=== PATIENT | male | born 1935 | race African-American/Black ===

== ENCOUNTER → 2016-05-14 | Outpatient (CLI) | payer MEDICARE, OTHER ==
[2016-05-14 15:02] LABS: HEMATOCRIT 26.3 % (37.9-51.0); HEMOGLOBIN 8.9 g/dL (13.5-17.0); HGB HCT DIFFERENCE 0.4; MEAN CORPUSCULAR HEMOGLOBIN 29.7 pg (27.0-33.4); MEAN CORPUSCULAR HGB CONC 33.9 g/dL (32.0-36.0); MEAN CORPUSCULAR VOLUME 88 fl (80-97); RED CELL DISTRIBUTION WIDTH 14.5 % (11.5-14.0); WHITE BLOOD COUNT 8.1 10^3/uL (4.0-10.5)
[2016-05-14 15:29] LABS: BASOPHILS % (MANUAL) 1 % (0-2); EOSINOPHILS % (MANUAL) 1 % (0-6); LYMPHOCYTES % (MANUAL) 8 % (13-45); TOTAL CELLS COUNTED 100
[2016-05-14 15:30] LABS: RBC MORPHOLOGY COMMENT NORMO-CYTIC/CHROMIC
[2016-05-14 15:32] LABS: BLOOD UREA NITROGEN 93 mg/dL (7-20); CALCIUM 9.7 mg/dL (8.4-10.2); CREATININE RESULT 3.91 mg/dL (0.52-1.25); GLUCOSE 113 mg/dL (75-110)
[2016-05-14 15:40] LABS: ANION GAP 19 (5-19); CARBON DIOXIDE 15 mmol/L (22-30); CHLORIDE 109 mmol/L (98-107); POTASSIUM 4.9 mmol/L (3.6-5.0); SODIUM 143.4 mmol/L (137-145)
== END ==
LOC: OD 12:47
PROVIDERS: ATTEND Physician Assistant
DX: R42 Dizziness and giddiness (principal)
CPT/HCPCS: 36415; 80048; 85025

== ENCOUNTER → 2016-05-31 | Outpatient (CLI) | payer MEDICARE, OTHER ==
[2016-05-31 12:33] LABS: HEMATOCRIT 29.4 % (37.9-51.0); HEMOGLOBIN 9.6 g/dL (13.5-17.0); HGB HCT DIFFERENCE -0.6; MEAN CORPUSCULAR HEMOGLOBIN 29.5 pg (27.0-33.4); MEAN CORPUSCULAR HGB CONC 32.8 g/dL (32.0-36.0); MEAN CORPUSCULAR VOLUME 90 fl (80-97); RED BLOOD COUNT 3.27 10^6/uL (4.35-5.55); RED CELL DISTRIBUTION WIDTH 15.6 % (11.5-14.0); WHITE BLOOD COUNT 6.7 10^3/uL (4.0-10.5)
[2016-05-31 13:04] LABS: ANION GAP 14 (5-19); BLOOD UREA NITROGEN 68 mg/dL (7-20); CALCIUM 9.4 mg/dL (8.4-10.2); CARBON DIOXIDE 18 mmol/L (22-30); CHLORIDE 115 mmol/L (98-107); CREATININE RESULT 3.02 mg/dL (0.52-1.25); GLUCOSE 92 mg/dL (75-110); SODIUM 146.9 mmol/L (137-145)
== END ==
LOC: OD 11:55
PROVIDERS: ATTEND Internal Medicine Nephrology
DX: D64.9 Anemia, unspecified (principal); N18.4 Chronic kidney disease, stage 4 (severe)
CPT/HCPCS: 36415; 80048; 82728; 83540; 83550; 85027

== ENCOUNTER 2016-07-22 12:25 | Inpatient (IN) | payer MEDICARE, OTHER ==
--- NOTE | 2016-07-22 12:47 | ER Document Report ---
ED Medical Screen (RME) - General Stated Complaint: LEFT LEG PAIN Time seen by provider: 12:45 Mode of Arrival: Wheelchair Information source: Patient Notes: 80-year-old male presents to ED for positive Doppler for DVT to his left leg. Pain was 3 out of 5. Denies being on blood thinners, denies smoking. Patient has a pacemaker/defibrillator. I have greeted and performed a rapid initial assessment of this patient. A comprehensive ED assessment and evaluation of the patient, analysis of test results and completion of medical decision making process will be conducted by an additional ED providers. TRAVEL OUTSIDE OF THE [place] IN LAST 30 DAYS: No - Related Data Allergies/Adverse Reactions: No Known Allergies Allergy (Verified 07/22/16 12:43) Past Medical History - Past Medical History Cardiac Medical History: Reports: Hx Congestive Heart Failure, Hx Coronary Artery Disease, Hx Hypercholesterolemia, Hx Hypertension Pulmonary Medical History: Reports: Hx COPD Neurological Medical History: Denies: Hx Seizures Renal/ Medical History: Reports: Hx Benign Prostatic Hyperplasia GI Medical History: Reports: Hx Gastroesophageal Reflux Disease Musculoskeltal Medical History: Reports Hx Arthritis - osteo. Psychiatric Medical History: Reports: Hx Depression Past Surgical History: Reports: Hx Cardiac Surgery - pacer/defibrillator, Hx Internal Defibrillator - Immunizations Hx Diphtheria, Pertussis, Tetanus Vaccination: Yes
[2016-07-22 13:22] LABS: ABSOLUTE BASOPHILS # (AUTO) 0.1 10^3/uL (0.0-0.2); ABSOLUTE EOSINOPHILS # (AUTO) 0.1 10^3/uL (0.0-0.6); ABSOLUTE LYMPHOCYTES (AUTO) 0.4 10^3/uL (0.5-4.7); ABSOLUTE MONOCYTES (AUTO) 0.5 10^3/uL (0.1-1.4); ABSOLUTE NEUT (AUTO) 4.6 10^3/uL (1.7-8.2); BASOPHILS % (AUTO) 1.2 % (0-2); EOSINOPHILS % (AUTO) 1.6 % (0-6); HEMATOCRIT 34.6 % (37.9-51.0); HGB HCT DIFFERENCE -1.6; LYMPHOCYTES % (AUTO) 7.6 % (13-45); MEAN CORPUSCULAR HEMOGLOBIN 29.3 pg (27.0-33.4); MEAN CORPUSCULAR HGB CONC 31.9 g/dL (32.0-36.0); MEAN CORPUSCULAR VOLUME 92 fl (80-97); MONOCYTES % (AUTO) 9.2 % (3-13); RED BLOOD COUNT 3.76 10^6/uL (4.35-5.55); RED CELL DISTRIBUTION WIDTH 16.4 % (11.5-14.0); SEGMENTED NEUTROPHILS % (AUTO) 80.4 % (42-78); WHITE BLOOD COUNT 5.8 10^3/uL (4.0-10.5)
[2016-07-22 13:28] LABS: PROTHROMBIN TIME 15.4 SEC (11.4-15.4)
--- NOTE | 2016-07-22 13:32 | ER Document Report ---
ED Extremity Problem, Lower - General Mode of Arrival: Wheelchair Information source: Patient, Relative - TRAVEL OUTSIDE OF THE [place] IN LAST 30 DAYS: No - HPI Patient complains to provider of: Pain, Swelling Location: Leg - left Occurred: Yesterday Context: Other - see above Associated symptoms: Other - see above <KRZYSZTOF MUELLER - Last Filed: 07/22/16 13:35> <MARIANELA GUTIERREZ - Last Filed: 07/22/16 16:37> - General Chief Complaint: Leg Swelling Stated Complaint: LEFT LEG PAIN Notes: 80 year old male with history of CHF, CAD, hyperlipidemia, and hypertension presents to the ED after having an outpatient doppler study performed on the patient's left leg and finding evidence of a DVT in the left femoral vein at the thigh. states that she noticed the patient complaining of pain and swelling to the left leg yesterday. Patient reports that it hurt more at night. (KRZYSZTOF MUELLER) - Related Data Allergies/Adverse Reactions: No Known Allergies Allergy (Verified 07/22/16 12:43) Home Medications: Current Home Medications Atorvastatin Calcium [Lipitor 10 mg Tablet] 10 mg PO QHS 07/22/16 [History] Carvedilol [Coreg 3.125 mg Tablet] 3.125 mg PO Q12 07/22/16 [History] Clopidogrel Bisulfate [Clopidogrel] 75 mg PO DAILY 07/22/16 [History] Famotidine [Pepcid 20 mg Tablet] 20 mg PO BID 07/22/16 [History] Febuxostat [Uloric 40 mg Tablet] 40 mg PO DAILY 07/22/16 [History] Ferrous Sulfate [Feosol 325 mg Tablet] 325 mg PO BID 07/22/16 [History] Furosemide [Lasix] 20 mg PO DAILY 07/22/16 [History] Isosorbide Mononitrate [Isosorbide Mononitrate ER] 30 mg PO DAILY 07/22/16 [ History] Losartan Potassium [Cozaar 50 mg Tablet] 50 mg PO Q12 07/22/16 [History] Past Medical History - General Information source: Patient - Social History Smoking Status: Never Smoker Chew tobacco use (# tins/day): No Frequency of alcohol use: None Drug Abuse: None Family History: None Patient has suicidal ideation: No Patient has homicidal ideation: No - Past Medical History Cardiac Medical History: Reports: Hx Congestive Heart Failure, Hx Coronary Artery Disease, Hx Hypercholesterolemia, Hx Hypertension Pulmonary Medical History: Reports: Hx COPD Neurological Medical History: Denies: Hx Seizures Renal/ Medical History: Reports: Hx Benign Prostatic Hyperplasia. Denies: Hx Peritoneal Dialysis GI Medical History: Reports: Hx Gastroesophageal Reflux Disease Musculoskeltal Medical History: Reports Hx Arthritis - osteo. Psychiatric Medical History: Reports: Hx Depression Past Surgical History: Reports: Hx Cardiac Surgery - pacer/defibrillator, Hx Internal Defibrillator - Immunizations Hx Diphtheria, Pertussis, Tetanus Vaccination: Yes <KRZYSZTOF MUELLER - Last Filed: 07/22/16 13:35> Review of Systems - Review of Systems Constitutional: No symptoms reported EENT: No symptoms reported Cardiovascular: No symptoms reported Respiratory: No symptoms reported Gastrointestinal: No symptoms reported Genitourinary: No symptoms reported Male Genitourinary: No symptoms reported Musculoskeletal: See HPI, Leg swelling - left Skin: No symptoms reported Hematologic/Lymphatic: No symptoms reported Neurological/Psychological: No symptoms reported -: Yes All other systems reviewed and negative <KRZYSZTOF MUELLER - Last Filed: 07/22/16 13:35> Physical Exam <KRZYSZTOF MUELLER - Last Filed: 07/22/16 13:35> - Vital signs Interpretation: Normal - General General appearance: Appears well, Alert In distress: None - HEENT Head: Normocephalic, Atraumatic Eyes: Normal Pupils: PERRL Neck: Normal - Respiratory Respiratory status: No respiratory distress Breath sounds: Normal - Cardiovascular Rhythm: Regular - Abdominal Inspection: Normal Bowel sounds: Normal Tenderness: Nontender - Back Back: Normal - Extremities General upper extremity: Normal inspection General lower extremity: Other - There is some edema to the lower legs with the left leg a little larger than the right. - Neurological Neuro grossly intact: Yes - Psychological Associated symptoms: Normal affect - Skin Skin Temperature: Warm Skin Moisture: Dry Skin Color: Normal <MARIANELA GUTIERREZ - Last Filed: 07/22/16 16:37> - Vital signs Vitals: Temp Pulse BP Pulse Ox 97.3 F 73 154/66 H 98 07/22/16 12:43 07/22/16 12:43 07/22/16 12:43 07/22/16 12:43 - General Notes: Patient is somewhat cachectic and seems to be a little demented (MARIANELA GUTIERREZ) Course - Laboratory Result Diagrams: 07/22/16 12:50 07/22/16 12:50 <KRZYSZTOF MUELLER - Last Filed: 07/22/16 13:35> - Laboratory Result Diagrams: 07/22/16 12:50 07/22/16 12:50 - Diagnostic Test Radiology reviewed: Reports reviewed - VQ scan is read as intermediate probability - EKG Interpretation by Me EKG shows normal: Sinus rhythm, [place], Intervals, QRS Complexes, ST-T Waves Rate: Normal - 86 [place]/QRS: LBBB P Waves: LAE Heart block present: 1st Degree When compared to previous EKG there are: Changes noted - The T waves are a little more call and peaked today - Consults Dr. Mueller Time consulted: 15:10 Consulted provider: will see as inpatient - Dr. Mueller requests we start a heparin drip without the heparin bolus. Dr. Graff Time consulted: 15:20 Consulted provider: will see as inpatient <MARIANELA GUTIERREZ - Last Filed: 07/22/16 16:37> - Vital Signs Vital signs: Temp Pulse Resp BP Pulse Ox 97.3 F 73 154/66 H 98 07/22/16 12:43 07/22/16 12:43 07/22/16 12:43 07/22/16 12:43 - Laboratory Laboratory results interpreted by me: 07/22/16 07/22/16 07/22/16 12:50 12:50 12:50 RBC 3.76 L Hgb 11.0 L Hct 34.6 L MCHC 31.9 L RDW 16.4 H Plt Count 460 H Seg Neutrophils % 80.4 H Lymphocytes % 7.6 L Absolute Lymphocytes 0.4 L Potassium 6.1 H* Chloride 116 H Carbon Dioxide 14 L BUN 61 H Creatinine 3.72 H Est GFR ( Amer) 19 L Est GFR (Non-Af Amer) 16 L Creatine Kinase 219 H CK-MB (CK-2) 26.20 H Critical Care Note - Critical Care Note Total time excluding time spent on procedures (mins): 30 <MARIANELA GUTIERREZ - Last Filed: 07/22/16 16:37> Discharge <KRZYSZTOF MUELLER - Last Filed: 07/22/16 13:35> - Discharge Admitting Provider: [facility] Unit Admitted: IMCU <MARIANELA GUTIERREZ - Last Filed: 07/22/16 16:37> - Discharge Clinical Impression: Chronic renal failure, stage 4 (severe), Hyperkalemia Deep venous thrombosis of left femoral vein Qualifiers: Chronicity: acute Qualified Code(s): I82.412 - Acute embolism and thrombosis of left femoral vein Condition: Stable Disposition: ADMITTED INPATIENT Scribe Attestation: 07/22/16 16:37 I personally performed the services described in the documentation, reviewed and edited the documentation which was dictated to the scribe in my presence, and it accurately records my words and actions. (MARIANELA GUTIERREZ) Scribe Documentation - Scribe Written by Alen:: Alen Reyes, 07/22/2016 1333 acting as scribe for :: Ba <KRZYSZTOF MUELLER - Last Filed: 07/22/16 13:35>
[2016-07-22 13:46] LABS: ALANINE AMINOTRANSFERASE 23 U/L (21-72); ALKALINE PHOSPHATASE 64 U/L (38-126); ANION GAP 15 (5-19); ASPARTATE AMINO TRANSFERASE 44 U/L (17-59); BILIRUBIN,TOTAL 0.6 mg/dL (0.2-1.3); BLOOD UREA NITROGEN 61 mg/dL (7-20); CALCIUM 10.1 mg/dL (8.4-10.2); CARBON DIOXIDE 14 mmol/L (22-30); CHLORIDE 116 mmol/L (98-107); CREATINE KINASE 219 U/L (55-170); CREATININE RESULT 3.72 mg/dL (0.52-1.25); GLUCOSE 106 mg/dL (75-110); SODIUM 144.6 mmol/L (137-145)
[2016-07-22 13:57] LABS: CREATINE KINASE MB 26.2 ng/mL (<4.55)
[2016-07-22 14:01] LABS: POTASSIUM 6.1 mmol/L (3.6-5.0); TROPONIN I 5.8 ng/mL
[2016-07-22] MEDS ORDERED: ACETAMINOPHEN 325 MG TABLET PO PRN (15:12)
[2016-07-22] MEDS ORDERED: IPRATROPIUM/ALBUTEROL 0.5-2.5 MG/3 ML AMPUL NEB PRN (15:12)
[2016-07-22] MEDS ORDERED: HEPARIN SOD (PORCINE) 1,000 UNIT/ML 10 ML VIAL IV PRN (15:14)
[2016-07-22] MEDS ORDERED: HEPARIN SOD (PORCINE) 1,000 UNIT/ML 10 ML VIAL IV ONE (15:14)
[2016-07-22] MEDS ORDERED: HEPARIN SODIUM,PORCINE/D5W 250 ML IV PRN (15:14)
[2016-07-22] MEDS ORDERED: SODIUM POLYSTYRENE SULFONATE 15 GM/60 ML PO ONE ×2 (15:16→15:23)
[2016-07-22] MEDS ORDERED: ASPIRIN 325 MG TABLET, ENT COATED PO ONE (15:17)
[2016-07-22] MEDS ORDERED: CALCIUM GLUCONATE 1000 MG/10 ML INJ IV ONE (15:27)
[2016-07-22] MEDS ORDERED: NORMAL SALINE 1000 ML 1,000 ML IV ONE (15:28)
[2016-07-22] MEDS ORDERED: SODIUM BICARBONATE 8.4% INJ 50 MEQ/50 ML DISP.SYRIN IV ONE (15:28)
--- NOTE | 2016-07-22 16:42 | PDOC H&P ---
History of Present Illness Admission Date/PCP: 07/22/16 15:12 XUAN DAWN MD Patient complains of: Leg swelling and shortness of the breath History of Present Illness: NIKOS HAMMOND is a 80 year old This is a 80-year-old male with a significant disease with a coronary artery and only medical management for the widened cardiology and also patient's follow the local cardiology and the significant history of anemia and chronic kidney disease stage IV patients came to the my office today with a complaint before increasing the leg swelling and shortness of the breath for the last several days. In the office patient was not in any acute distress and O2 sat is normal but the patient ever definitely is swelling in the leg and the concern about the DVT versus CHF. Patient have a history of the DVT in the left extremity in the past and the patient was on the Coumadin but after several months of Coumadin will stop because of severe anemia. Patient sent to the hospital for the ultrasound and the report was positive for acute DVT in the left upper extremity and patient was sent to the emergency departmentAnd the patient underwent for the VQ scan Sows indeterminant and patient's potassium was high and patient's troponin was also elevatedPatients denied any chest pain denied any shortness of breath but it is now patient was started on a heparin drip in the ER and the patient have a multiple other risk factors and comorbidity with only medical management for his coronary disease and patient is not a very good candidate for dialysis because of the multiple comorbidity. 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 and which is not operable because of the multiple comorbidity and not sure about this mass is related to any malignancy but with ongoing patient's problems with unable to eat or drink much I believe that this is a small progress Past Medical History Cardiac Medical History: Reports: Congestive Heart Failure, Coronary Artery Disease, DVT, Myocardial Infarction, Hyperlipidema, Hypertension, Heart Murmur Pulmonary Medical History: Reports: Chronic Obstructive Pulmonary Disease (COPD) Neurological Medical History: Denies: Seizures Renal/ Medical History: Reports: Chronic Kidney Disease 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 Psychiatric Medical History: Reports: Depression Hematology: Reports: Anemia, Bleeding Tendencies Past Surgical History Past Surgical History: Reports: Cardiac Catheterization, Internal Defibrillator , Pacemaker Social History Smoking Status: Never Smoker Frequency of Alcohol Use: None Hx Recreational Drug Use: No Drugs: None Hx Prescription Drug Abuse: No Family History Family History: None, Reviewed & Not Pertinent Parental Family History Reviewed: Yes Children Family History Reviewed: Yes Sibling(s) Family History Reviewed.: Yes Medication/Allergy Home Medications: Atorvastatin Calcium [Lipitor 10 mg Tablet] 10 mg PO QHS 07/22/16 Carvedilol [Coreg 3.125 mg Tablet] 3.125 mg PO Q12 07/22/16 Clopidogrel Bisulfate [Clopidogrel] 75 mg PO DAILY 07/22/16 Famotidine [Pepcid 20 mg Tablet] 20 mg PO BID 07/22/16 Febuxostat [Uloric 40 mg Tablet] 40 mg PO DAILY 07/22/16 Ferrous Sulfate [Feosol 325 mg Tablet] 325 mg PO BID 07/22/16 Furosemide [Lasix] 20 mg PO DAILY 07/22/16 Isosorbide Mononitrate [Isosorbide Mononitrate ER] 30 mg PO DAILY 07/22/16 Losartan Potassium [Cozaar 50 mg Tablet] 50 mg PO Q12 07/22/16 Allergies/Adverse Reactions: No Known Allergies Allergy (Verified 07/22/16 12:43) Review of Systems Constitutional: PRESENT: fatigue, weakness Eyes: ABSENT: visual disturbances Ears: ABSENT: hearing changes Cardiovascular: PRESENT: chest pain, dyspnea on exertion, edema. ABSENT: orthropnea, palpitations Respiratory: ABSENT: cough, hemoptysis Gastrointestinal: ABSENT: abdominal pain, constipation, diarrhea, hematemesis, hematochezia, nausea, vomiting Genitourinary: ABSENT: dysuria, hematuria Musculoskeletal: ABSENT: joint swelling Integumentary: ABSENT: rash, wounds Neurological: ABSENT: abnormal gait, abnormal speech, confusion, dizziness, focal weakness, syncope Psychiatric: PRESENT: depression. ABSENT: anxiety, homidical ideation, suicidal ideation Endocrine: ABSENT: cold intolerance, heat intolerance, menstrual abnormalities, polydipsia, polyuria Hematologic/Lymphatic: ABSENT: easy bleeding, easy bruising, lymphadenopathy Physical Exam Vital Signs: Temp Pulse Resp BP Pulse Ox 97.3 F 73 154/66 H 98 07/22/16 12:43 07/22/16 12:43 07/22/16 12:43 07/22/16 12:43 General appearance: PRESENT: no acute distress, well-developed, well-nourished Head exam: PRESENT: atraumatic, normocephalic Eye exam: PRESENT: conjunctiva pink, EOMI, PERRLA. ABSENT: scleral icterus Ear exam: PRESENT: normal external ear exam Mouth exam: PRESENT: moist, tongue midline Neck exam: PRESENT: full ROM. ABSENT: carotid bruit, JVD, lymphadenopathy, thyromegaly Respiratory exam: PRESENT: decreased breath sounds Cardiovascular exam: PRESENT: +S1, +S2. ABSENT: rubs, systolic murmur Pulses: PRESENT: normal dorsalis pedis pul, +2 pedal pulses bilateral Vascular exam: PRESENT: normal capillary refill GI/Abdominal exam: PRESENT: normal bowel sounds, soft. ABSENT: distended, guarding, mass, organolmegaly, rebound, tenderness Rectal exam: PRESENT: deferred Extremities exam: PRESENT: pedal edema Neurological exam: PRESENT: alert, awake, oriented to person, oriented to place , oriented to time, oriented to situation, CN II-XII grossly intact. ABSENT: motor sensory deficit Psychiatric exam: PRESENT: appropriate affect, normal mood. ABSENT: homicidal ideation, suicidal ideation Skin exam: PRESENT: dry, intact, warm. ABSENT: cyanosis, rash Results Impressions: Lung Scan-VQ NM 07/22/16 13:14 IMPRESSION: Matching ventilation and perfusion defect in the right lower lobe. This is intermediate probability for acute pulmonary embolus according to PIOPED criteria. Patient has a known DVT in the left leg. Assessment & Plan - Diagnosis (1) Deep venous thrombosis of left femoral vein Qualifiers: Chronicity: acute Qualified Code(s): I82.412 - Acute embolism and thrombosis of left femoral vein Is this a current diagnosis for this admission?: YesPlan: Admit the patient in the IMCU with the possible underlying PE, no other options to start the heparin drip consult a seam steamer and oncologist for further assessment. Discussed with the patient and the family about all the pros and cons of the heparin drips and agree start the heparin drips (2) Chronic renal failure, stage 4 (severe) Is this a current diagnosis for this admission?: YesPlan: We consulted the nephrology as per discussed with the Dr. Graff patient is not a very good candidate for the dialysis because of the patient of a multiple comorbidity including the very severe coronary artery disease and unable to operate and only a medical management and patients may be a high risk on the dialysis will continues to follow with nephrology (3) Hyperkalemia Is this a current diagnosis for this admission?: YesPlan: Given some Kayexalate and repeat this again after that 4 hours (4) Acute combined systolic and diastolic CHF, NYHA class 3 Is this a current diagnosis for this admission?: YesPlan: Start the patient on IV Lasix and consult the cardiology (5) Acute iun-FT-[id number] myocardial infarction Is this a current diagnosis for this admission?: YesPlan: Possible underlying cardiomyopathy will consult the cardiology as per the very extensive review the widened and the previous cardiology not patient is only a medical management (6) Anemia Qualifiers: Anemia type: unspecified type Qualified Code(s): D64.9 - Anemia, unspecified Is this a current diagnosis for this admission?: YesPlan: We will continues to given Procrit injections patient's last Procrit injection was given the last Tuesday by Dr. Graff will get on iron study stool guaiac study (7) Cardiomyopathy Qualifiers: Cardiomyopathy type: unspecified Qualified Code(s): I42.9 - Cardiomyopathy, unspecified Is this a current diagnosis for this admission?: YesPlan: Continues to Lasix order the echocardiogram (8) Colonic mass Is this a current diagnosis for this admission?: YesPlan: Unclear etiology but unable to do any operative interventions due to the multiple comorbidity (9) Elevated troponin Is this a current diagnosis for this admission?: YesPlan: Most likely a from the non-ST MS versus cardiomyopathy and chronic kidney disease will follow with the cardiology (10) Hypertension Qualifiers: Hypertension type: essential hypertension Qualified Code(s): I10 - Essential (primary) hypertension Is this a current diagnosis for this admission?: YesPlan: Continues the current medications (11) Failure to thrive Qualifiers: Failure to thrive age range: in adult Qualified Code(s): R62.7 - Adult failure to thrive Is this a current diagnosis for this admission?: YesPlan: With the multiple comorbidity and the multiple disease with dietitian consult - Time Time Spent: 50 to 70 Minutes Medications reviewed and adjusted accordingly: Yes Anticipated discharge: Other Within: Other - Inpatient Certification Medical Necessity: Need Close Monitoring Due to Risk of Patient Decompensation Post Hospital Care: D/C Android Platform Developer Documentation - Plan Summary Plan Summary: Admit the patient's in IMCU consult to cardiology and nephrology and hematology. Start the patient on a heparin drip. Patient have a multiple comorbidity and the overall prognosis is very poor. Discussed with the patient' s and the family including his and the nephew and understand about that
[2016-07-22 19:08] LABS: PROTHROMBIN TIME 15.9 SEC (11.4-15.4)
--- NOTE | 2016-07-22 19:47 | PDOC CONSULTATION ---
Consultation Consult Date: 07/22/16 Attending physician:: XUAN DAWN Consult reason:: Abnormal troponin I History of Present Illness Admission Date/PCP: 07/22/16 15:12 XUAN DAWN MD Patient complains of: Leg edema History of Present Illness: NIKOS HAMMOND is a 80 year old This is a 80-year-old male with a significant disease with a coronary artery and only medical management as per [facility] cardiology and also patient's follow the local cardiology and the significant history of anemia and chronic kidney disease stage IV patients came to the my office today with a complaint before increasing the leg swelling and shortness of the breath for the last several days. In the office patient was not in any acute distress and O2 sat is normal but the patient ever definitely is swelling in the leg and the concern about the DVT versus CHF. Patient have a history of the DVT in the left extremity in the past and the patient was on the Coumadin but after several months of Coumadin will stop because of severe anemia. Patient sent to the hospital for the ultrasound and the report was positive for acute DVT in the left upper extremity and patient was sent to the emergency departmentAnd the patient underwent for the VQ scan Sows indeterminant and patient's potassium was high and patient's troponin was also elevated. Patients denied any chest pain denied any shortness of breath but it is now patient was started on a heparin drip in the ER and the patient have a multiple other risk factors and comorbidity with only medical management for his coronary disease and patient is not a very good candidate for dialysis because of the multiple comorbidity. Discussed with the family including the and the nephew and the patient's and understand about all the complexity of the disease and the patient at this point admitting in the hospital for further treatments. 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 On repeated questioning in the emergency room, he denied any chest pain, he denied any shortness of breath but kept pointing to his lower extremity. Patient was noted to be confused and could not remember the date. Past Medical History Cardiac Medical History: Reports: Congestive Heart Failure, Coronary Artery Disease, DVT, Myocardial Infarction, Hyperlipidema, Hypertension, Heart Murmur Pulmonary Medical History: Reports: Chronic Obstructive Pulmonary Disease (COPD) Neurological Medical History: Denies: Seizures Renal/ Medical History: Reports: Chronic Kidney Disease GI Medical History: Reports: Gastroesophageal Reflux Disease Musculoskeltal Medical History: Reports: Arthritis - osteo. Psychiatric Medical History: Reports: Depression Hematology: Reports: Anemia, Bleeding Tendencies Past Surgical History Past Surgical History: Reports: Cardiac Catheterization, Internal Defibrillator , Pacemaker Social History Information Source: Patient Smoking Status: Never Smoker Frequency of Alcohol Use: None Hx Recreational Drug Use: No Drugs: None Hx Prescription Drug Abuse: No - Advance Directive Resuscitation Status: Full Code Family History Family History: None, Reviewed & Not Pertinent Parental Family History Reviewed: Yes Children Family History Reviewed: Yes Sibling(s) Family History Reviewed.: Yes Medication/Allergy Home Medications: Atorvastatin Calcium [Lipitor 10 mg Tablet] 10 mg PO QHS 07/22/16 Carvedilol [Coreg 3.125 mg Tablet] 3.125 mg PO Q12 07/22/16 Clopidogrel Bisulfate [Clopidogrel] 75 mg PO DAILY 07/22/16 Clopidogrel Bisulfate [Plavix 75 mg Tablet] 75 mg PO DAILY #30 tablet 07/22/16 Famotidine [Pepcid 20 mg Tablet] 20 mg PO BID 07/22/16 Febuxostat [Uloric 40 mg Tablet] 40 mg PO DAILY 07/22/16 Ferrous Sulfate [Feosol 325 mg Tablet] 325 mg PO BID 07/22/16 Furosemide [Lasix] 20 mg PO DAILY 07/22/16 Isosorbide Mononitrate [Isosorbide Mononitrate ER] 30 mg PO DAILY 07/22/16 Losartan Potassium [Cozaar 50 mg Tablet] 50 mg PO Q12 07/22/16 Allergies/Adverse Reactions: No Known Allergies Allergy (Verified 07/22/16 12:43) Review of Systems Review of Systems: Please see history of present illness and past medical history as wall. Constitutional: No fever or chills reported. Head : No recent chronic headaches, recent head injury. Eyes: No recent eye pain, diplopia, redness, discharge, acute visual changes. Ears: No recent chronic ear pain, acute hearing loss, ear discharge. Oral cavity: No recent ulcerations, bleeding, oral cavity discomfort. Neck: No recent acute neck pain reported. Hematologic: No recent easy bruising or bleeding or hematologic malignancy reported. There is concern about GI tract malignancy. Lymphatic: No recent lymphatic malignancy, chronic lymphadenopathy reported yet Cardiovascular system review: See history of present illness. Patient denied any sustained palpitations, syncope, near syncope or recent defibrillator shocks. Patient has noted increasing pedal edema. Respiratory system review: No recent chronic cough, hemoptysis, blood clots in the lungs reported. Mild Shortness of breath on exertion. Gastrointestinal system review: Negative for any recent acute or chronic abdominal pain, hematemesis, melena, recent change in bowel habits. Genitourinary system review: No recent acute or chronic hematuria, flank pain, UTI etc. reported. Patient has chronic renal failure. Skin system review: Negative for any recent abnormal bruising, no rash, no pruritus reported. Neurologic: No prior history of strokes, mini strokes, seizure disorder. Psychologic: No history of major psychosis or major depression reported. Musculoskeletal: Minor aches and pains reported. No acute joint swelling reported. Endocrine: No recent polyuria, polydipsia, recent heat or cold intolerance. Physical Exam Vital Signs: Temp Pulse Resp BP Pulse Ox 97.3 F 101 H 16 152/84 H 96 07/22/16 12:43 07/22/16 17:40 07/22/16 17:40 07/22/16 17:00 07/22/16 17:40 Exam: GENERAL: well-nourished and in no acute distress. Alert and oriented x3 HEAD: Atraumatic, normocephalic. EYES: Pupils equal round and reactive to light, extraocular movements intact, sclera anicteric, conjunctiva are normal. ENT: TMs normal, nares patent, oropharynx clear without exudates. Moist mucous membranes. No oral ulcerations or bleeding gums noted NECK: supple without lymphadenopathy. Trachea is central. No cervical or axillary lymphadenopathy noted. Carotids are 2+, JVD WNL LUNGS: Respiration seems nonlabored, no significant accessory muscle action noted. Breath sounds clear to auscultation bilaterally and equal noted. No wheezes rales or rhonchi noted. No significant dullness noted on percussion. CHEST: Palpation of the chest wall shows no significant chest wall tenderness. No other significant abnormalities noted. HEART: [place] [employer], No PSH, 1/6 ZAYRA aortic area, 1/6 kwan systolic murmur mitral area, no rubs, no gallops. ABDOMEN: Soft, no significant tenderness appreciated, normoactive bowel sounds. No guarding, no rebound. No rigidity noted . No masses appreciated. EXTREMITIES: Pedal pulses are 1-2+, no calf tenderness noted. No clubbing or cyanosis.2+ + pedal edema noted. NEUROLOGICAL: Focused neurological exam showed no significant neurologic deficit. Normal speech, no focal weakness appreciated. PSYCH: Normal mood, normal affect. Judgment and insight within normal limits. SKIN: No significant ecchymosis, rash, ulcerations or signs of pruritus noted. MUSCULOSKELETAL EXAM: No significant joint swelling noted. Results EKG Comments: Sinus rhythm, LVH with secondary ST-T wave changes Impressions: Lung Scan[facility] 07/22/16 13:14 IMPRESSION: Matching ventilation and perfusion defect in the right lower lobe. This is intermediate probability for acute pulmonary embolus according to PIOPED criteria. Patient has a known DVT in the left leg. Assessment & Plan - Diagnosis (1) Acute [id number] myocardial infarction Is this a current diagnosis for this admission?: Yes (2) CHF (congestive heart failure) Qualifiers: Congestive heart failure type: combined Congestive heart failure chronicity: chronic Qualified Code(s): I50.42 - Chronic combined systolic (congestive) and diastolic (congestive) heart failure Is this a current diagnosis for this admission?: Yes (3) CAD (coronary artery disease) Qualifiers: Coronary Disease-Associated Artery/Lesion type: [place] artery [place] vs. transplanted heart: [place] heart Associated angina: without angina Qualified Code(s): I25.10 - Atherosclerotic heart disease of [place] coronary artery without angina pectoris Is this a current diagnosis for this admission?: Yes (4) Elevated troponin Is this a current diagnosis for this admission?: Yes (5) Chronic renal failure, stage 4 (severe) Is this a current diagnosis for this admission?: Yes (6) Deep venous thrombosis of left femoral vein Qualifiers: Chronicity: acute Qualified Code(s): I82.412 - Acute embolism and thrombosis of left femoral vein Is this a current diagnosis for this admission?: Yes (7) Failure to thrive Qualifiers: Failure to thrive age range: in adult Qualified Code(s): R62.7 - Adult failure to thrive Is this a current diagnosis for this admission?: Yes (8) Hyperkalemia Is this a current diagnosis for this admission?: Yes - Notes Notes: Acute non-ST segment elevation myocardial infarction: Patient has significantly elevated total CK-MB and also troponin I. This is in the non-STEMI range. Patient however felt not a candidate for aggressive intervention. At this point patient is asymptomatic and is not exhibiting any angina or angina related symptoms. Recommend medical management with beta rigo, statins, aspirin and Plavix. Agree with heparin drip for 48-72 hours. Will repeat a 12- lead EKG. In a.m. and also a 2-D echocardiogram. Congestive heart failure: Patient seems to be having chronic congestive heart failure stage III. From both systolic and diastolic dysfunction. Coronary artery disease: Please see discussion under acute non-ST segment elevation myocardial infarction. Elevated troponin I: Probably related to non-STEMI but could also be related to pulmonary embolism. Chronic kidney disease, stage IV: Nephrology consulted. The venous thrombosis left femoral vein: Continue chronic anticoagulation. Hyperkalemia: Agree with current management plan with Kayexalate. Failure to thrive: Elevation test numerous significant comorbid condition. Overall prognosis is guarded. - Time Time Spent: 50 to 70 Minutes - CODE STATUS was discussed, patient remains full code. Surrogate decision-maker unchanged. Multiple medical problems were addressed.More than 50% of the time spent coordinating care, discussing management plans with involved caregivers. Management plans discussed with involved personnels. Medical decision making was of moderate complexity. Medications reviewed and adjusted accordingly: Yes
[2016-07-22] MEDS: FAMOTIDINE 20 MG TABLET PO SCH (22:34)
[2016-07-22] MEDS: FUROSEMIDE INJ/PF 20 MG/2 ML SDV IV SCH (22:56)
[2016-07-23] MEDS ORDERED: FAMOTIDINE 20 MG TABLET PO SCH (00:45)
[2016-07-23] MEDS ORDERED: ATORVASTATIN CALCIUM 10 MG TABLET PO ONE (00:45)
[2016-07-23] MEDS ORDERED: LOSARTAN POTASSIUM 50 MG TABLET PO ONE (00:45)
[2016-07-23] MEDS ORDERED: CARVEDILOL 3.125 MG TABLET PO ONE (01:00)
[2016-07-23] MEDS ORDERED: FERROUS SULFATE 325 MG TABLET PO ONE (01:00)
--- NOTE | 2016-07-23 05:35 | EKG REPORT ---
SEVERITY:- ABNORMAL ECG - SINUS RHYTHM FIRST DEGREE AV BLOCK LEFT ATRIAL ABNORMALITY LEFT BUNDLE BRANCH BLOCK : Confirmed by: Payton Malhotra MD 23-Jul-2016 05:35:09
--- NOTE | 2016-07-23 05:35 | EKG REPORT ---
SEVERITY:- ABNORMAL ECG - SINUS OR ECTOPIC ATRIAL RHYTHM LEFT BUNDLE BRANCH BLOCK : Confirmed by: Payton Malhotra MD 23-Jul-2016 05:35:02
[2016-07-23 06:01] LABS: ANION GAP 17 (5-19); BLOOD UREA NITROGEN 66 mg/dL (7-20); CALCIUM 10.4 mg/dL (8.4-10.2); CARBON DIOXIDE 15 mmol/L (22-30); CHLORIDE 119 mmol/L (98-107); CREATININE RESULT 4.17 mg/dL (0.52-1.25); GLUCOSE 137 mg/dL (75-110); SODIUM 151.1 mmol/L (137-145)
[2016-07-23 06:12] LABS: ABSOLUTE BASOPHILS # (AUTO) 0.1 10^3/uL (0.0-0.2); ABSOLUTE LYMPHOCYTES (AUTO) 0.5 10^3/uL (0.5-4.7); ABSOLUTE MONOCYTES (AUTO) 0.6 10^3/uL (0.1-1.4); ABSOLUTE NEUT (AUTO) 5.9 10^3/uL (1.7-8.2); BASOPHILS % (AUTO) 0.8 % (0-2); EOSINOPHILS % (AUTO) 0.2 % (0-6); HEMATOCRIT 36.2 % (37.9-51.0); HEMOGLOBIN 11.6 g/dL (13.5-17.0); HGB HCT DIFFERENCE -1.4; LYMPHOCYTES % (AUTO) 6.9 % (13-45); MEAN CORPUSCULAR HEMOGLOBIN 29.3 pg (27.0-33.4); MEAN CORPUSCULAR HGB CONC 32.1 g/dL (32.0-36.0); MEAN CORPUSCULAR VOLUME 92 fl (80-97); MONOCYTES % (AUTO) 8.5 % (3-13); RED BLOOD COUNT 3.96 10^6/uL (4.35-5.55); RED CELL DISTRIBUTION WIDTH 16.2 % (11.5-14.0); SEGMENTED NEUTROPHILS % (AUTO) 83.6 % (42-78); WHITE BLOOD COUNT 7.1 10^3/uL (4.0-10.5)
[2016-07-23 06:37] LABS: POTASSIUM 6.3 mmol/L (3.6-5.0)
[2016-07-23 06:57] LABS: APPEARANCE,URINE SLIGHTLY-CLOUDY; BILIRUBIN,URINE NEGATIVE (NEGATIVE); GLUCOSE, URINE NEGATIVE (NEGATIVE); KETONES,URINE NEGATIVE (NEGATIVE); LEUKOCYTE ESTERASE,URINE NEGATIVE (NEGATIVE); NITRITE,URINE NEGATIVE (NEGATIVE); PROTEIN,URINE 100 mg/dL (NEGATIVE); URINE SPECIFIC GRAVITY 1.013; UROBILINOGEN,URINE NEGATIVE mg/dL (<2.0)
--- NOTE | 2016-07-23 07:56 | PDOC CONSULTATION ---
Consultation Consult Date: 07/23/16 Attending physician:: XUAN DAWN Consult reason:: New onset DVT, anemia History of Present Illness Admission Date/PCP: 07/22/16 15:12 XUAN DAWN MD Patient complains of: Left lower extremity pain and swelling, weakness, poor by mouth intake History of Present Illness: 80-year-old male with multiple significant comorbidities, we have seen him in the past for anemia. That time he seemed to have a combination of anemia chronic disease as well as iron deficiency anemia. He had concern of colonic mass as well as gastric mass. He had an EGD as well as colonoscopy done 2014, the colonoscopy indicated tubulovillous adenoma but no evidence of malignancy, the EGD indicated some evidence of a gastric mass however the biopsy only indicated severe chronic gastritis but no malignancy. Imaging also at that time was negative for malignancy. He was treated for the anemia and then discharged. He was supposed to see us in the past but it is been very difficult for him to come to our office because of severe weakness and immobilization. He seems to be total care, does not do any ADLs or IADLs on his own. Per nursing, he has had a lot of weight loss, has having poor by mouth intake, and seems to be declining rapidly at home. Recently he was found to have increasing left lower extremity swelling, he had a Doppler done which indicated left femoral thrombosis, consistent with left lower extremity DVT, he is also having some increased shortness of breath so Dr. Dawn, his primary care , admitted him to [facility] and did VQ scan which was indeterminate for PE, there was a ventilation perfusion defect in the right lower lobe. Past Medical History Cardiac Medical History: Reports: Congestive Heart Failure, Coronary Artery Disease, DVT, Myocardial Infarction, Hyperlipidema, Hypertension, Heart Murmur Pulmonary Medical History: Reports: Chronic Obstructive Pulmonary Disease (COPD) Neurological Medical History: Denies: Seizures Renal/ Medical History: Reports: Chronic Kidney Disease GI Medical History: Reports: Gastroesophageal Reflux Disease Musculoskeltal Medical History: Reports: Arthritis - osteo. Psychiatric Medical History: Reports: Depression Hematology: Reports: Anemia, Bleeding Tendencies Past Surgical History Past Surgical History: Reports: Cardiac Catheterization, Internal Defibrillator , Pacemaker Social History Information Source: Dr. Portillo, [facility] Records Lives with: Family Smoking Status: Never Smoker Frequency of Alcohol Use: None Hx Recreational Drug Use: No Drugs: None Hx Prescription Drug Abuse: No - Advance Directive Resuscitation Status: Full Code Family History Family History: None, Reviewed & Not Pertinent Parental Family History Reviewed: Yes Children Family History Reviewed: Yes Sibling(s) Family History Reviewed.: Yes Medication/Allergy Home Medications: Atorvastatin Calcium [Lipitor 10 mg Tablet] 10 mg PO QHS 07/22/16 Carvedilol [Coreg 3.125 mg Tablet] 3.125 mg PO Q12 07/22/16 Clopidogrel Bisulfate [Clopidogrel] 75 mg PO DAILY 07/22/16 Clopidogrel Bisulfate [Plavix 75 mg Tablet] 75 mg PO DAILY #30 tablet 07/22/16 Famotidine [Pepcid 20 mg Tablet] 20 mg PO BID 07/22/16 Febuxostat [Uloric 40 mg Tablet] 40 mg PO DAILY 07/22/16 Ferrous Sulfate [Feosol 325 mg Tablet] 325 mg PO BID 07/22/16 Furosemide [Lasix] 20 mg PO DAILY 07/22/16 Isosorbide Mononitrate [Isosorbide Mononitrate ER] 30 mg PO DAILY 07/22/16 Losartan Potassium [Cozaar 50 mg Tablet] 50 mg PO Q12 07/22/16 Allergies/Adverse Reactions: No Known Allergies Allergy (Verified 07/22/16 12:43) Review of Systems ROS unobtainable: Due to mental status Physical Exam Vital Signs: Temp Pulse Resp BP Pulse Ox 97.4 F 88 18 160/86 H 100 07/23/16 04:56 07/23/16 04:56 07/23/16 04:56 07/23/16 04:56 07/23/16 04:56 Intake & Output 07/22/16 07/23/16 07/24/16 06:59 06:59 06:59 Intake Total 531 Output Total 150 Balance 381 Weight 63.8 kg General appearance: PRESENT: thin, other - Cachectic Head exam: PRESENT: atraumatic Mouth exam: PRESENT: dry mucosa Respiratory exam: PRESENT: clear to auscultation kristen. ABSENT: rales, rhonchi, wheezes Cardiovascular exam: PRESENT: RRR. ABSENT: diastolic murmur, rubs, systolic murmur GI/Abdominal exam: PRESENT: normal bowel sounds, soft. ABSENT: distended, guarding, mass, organolmegaly, rebound, tenderness Rectal exam: PRESENT: deferred Neurological exam: PRESENT: altered Results Laboratory Results: 07/23/16 05:04 07/23/16 05:04 07/23/16 07/23/16 07/23/16 05:04 05:04 06:10 WBC 7.1 RBC 3.96 L Hgb 11.6 L Hct 36.2 L MCV 92 MCH 29.3 MCHC 32.1 RDW 16.2 H Plt Count 468 H Seg Neutrophils % 83.6 H Lymphocytes % 6.9 L Monocytes % 8.5 Eosinophils % 0.2 Basophils % 0.8 Absolute Neutrophils 5.9 Absolute Lymphocytes 0.5 Absolute Monocytes 0.6 Absolute Eosinophils 0.0 Absolute Basophils 0.1 Sodium 151.1 H Potassium 6.3 H* Chloride 119 H Carbon Dioxide 15 L Anion Gap 17 BUN 66 H Creatinine 4.17 H Est GFR ( Amer) 17 L Est GFR (Non-Af Amer) 14 L Glucose 137 H Calcium 10.4 H Urine Color Urine Appearance Urine pH Ur Specific [place] Urine Protein Urine Glucose (UA) Urine Ketones Urine Blood Urine Nitrite Ur Leukocyte Esterase Urine WBC (Auto) Stool Occult Blood NEGATIVE 07/23/16 07/23/16 06:10 06:20 WBC RBC Hgb Hct MCV MCH MCHC RDW Plt Count Seg Neutrophils % Lymphocytes % Monocytes % Eosinophils % Basophils % Absolute Neutrophils Absolute Lymphocytes Absolute Monocytes Absolute Eosinophils Absolute Basophils Sodium Potassium Chloride Carbon Dioxide Anion Gap BUN Creatinine Est GFR ( Amer) Est GFR (Non-Af Amer) Glucose Calcium Urine Color YELLOW Urine Appearance SLIGHTLY-CLOUDY Urine pH 5.0 Ur Specific [place] 1.013 Urine Protein 100 H Urine Glucose (UA) NEGATIVE Urine Ketones NEGATIVE Urine Blood NEGATIVE Urine Nitrite NEGATIVE Ur Leukocyte Esterase NEGATIVE Urine WBC (Auto) 1 Stool Occult Blood Cancelled 07/23/16 05:04 NT-Pro-B Natriuret Pep [id number] H Impressions: Lung Scan-[facility] 07/22/16 13:14 IMPRESSION: Matching ventilation and perfusion defect in the right lower lobe. This is intermediate probability for acute pulmonary embolus according to PIOPED criteria. Patient has a known DVT in the left leg. Assessment & Plan - Diagnosis (1) Deep venous thrombosis of left femoral vein Qualifiers: Chronicity: acute Qualified Code(s): I82.412 - Acute embolism and thrombosis of left femoral vein Is this a current diagnosis for this admission?: YesPlan: He is currently on a heparin drip, we need transition him to an oral anticoagulant. However when I went in his room in his room he is still had mouthful of Kayexalate that was given for hyperkalemia, I'm unsure if his swallow reflex is appropriate and if he mentally swallowing appropriately. I' ve asked nursing to check this out. He may need a swallowing evaluation. At present continue with heparin drip, if he is deemed to be able to swallow pills appropriately and is not aspirating, then I would consider placing him on eliquis 2.5mg po BID. Unfortunately, given his history of questionable gastric mass and GI bleed in the past, he would be at a high-risk for GI bleed, but he would also be at a very high risk of PE, I don't believe placement of IVC filter would help him because that also can clot if patient is not anticoagulated. In addition his V/Q scan was indeterminate for PE, so he may already have a PE. Likely, eliquis would be the best choice and the lowest risk. (2) Anemia Qualifiers: Anemia type: other cause Other causes of anemia: chronic disease, kidney Qualified Code(s): N18.9 - Chronic kidney disease, unspecified; D63.1 - Anemia in chronic kidney disease Is this a current diagnosis for this admission?: YesPlan: He does have anemia of chronic kidney disease, he may have element of iron deficiency anemia, I will recommend iron studies for him. We will treat accordingly if needed with IV iron. - Time Time Spent: Greater than 70 Minutes Critical Time spent with patient: 35 or more minutes - Inpatient Certification Based on my medical assessment, after consideration of the patient's comorbidities, presenting symptoms, or acuity I expect that the services needed warrant INPATIENT care.: Yes I certify that my determination is in accordance with my understanding of Medicare's requirements for reasonable and necessary INPATIENT services [42 CFR 412.3e].: Yes Medical Necessity: Failure to Improve With Outpatient Therapy, Need For IV Fluids, Need For Continuous Telemetry Monitoring, Risk of Complication if Not Cared For in Hospital
[2016-07-23] MEDS ORDERED: SODIUM POLYSTYRENE SULFONATE 15 GM/60 ML PO ONE (08:00)
--- NOTE | 2016-07-23 08:24 | PDOC PROGRESS REPORT ---
Subjective Progress Note for:: 07/23/16 Subjective:: Patient is doing fair still short of breath and denied any chest pain this morning but overnight patient on and off confuse Patient's appetite is still very poor. Patient also have a acute renal failure and elevated potassiums Patient also have a DVT and PE and currently on heparin drips and also patient have a non-ST acute DC with the heart failure Very extensive discussions with the patient's nephew and regarding the patient's end-stage conditions and patient's currently a DO NOT RESUSCITATE and will discuss for more comfort care. Discussed with the Dr. Graff and suggest the patient is not a candidate for any dialysis due to the multiple comorbidity and patient is not candidate for any cardiac interventions and the patient's already have a severe anemia so long-term anticoagulation is not good for the patient's so I think that pretty much very limited resources and the patient's condition is more worsening and I think it's best way to pick the patient at this point to make a more comfort care as per order discussed with the other physicians and discuss with the patient's and the nephew's and understands very well Physical Exam Vital Signs: Temp Pulse Resp BP Pulse Ox 97.4 F 88 18 160/86 H 100 07/23/16 04:56 07/23/16 04:56 07/23/16 04:56 07/23/16 04:56 07/23/16 04:56 Intake & Output 07/22/16 07/23/16 07/24/16 06:59 06:59 06:59 Intake Total 531 Output Total 150 Balance 381 Weight 63.8 kg General appearance: PRESENT: no acute distress Eye exam: PRESENT: PERRLA Mouth exam: PRESENT: neck supple Respiratory exam: PRESENT: decreased breath sounds Cardiovascular exam: PRESENT: +S1, +S2 GI/Abdominal exam: PRESENT: normal bowel sounds, soft Extremities exam: PRESENT: pedal edema Neurological exam: PRESENT: alert, awake Results Laboratory Results: 07/23/16 05:04 07/23/16 05:04 07/23/16 07/23/16 07/23/16 05:04 05:04 06:10 WBC 7.1 RBC 3.96 L Hgb 11.6 L Hct 36.2 L MCV 92 MCH 29.3 MCHC 32.1 RDW 16.2 H Plt Count 468 H Seg Neutrophils % 83.6 H Lymphocytes % 6.9 L Monocytes % 8.5 Eosinophils % 0.2 Basophils % 0.8 Absolute Neutrophils 5.9 Absolute Lymphocytes 0.5 Absolute Monocytes 0.6 Absolute Eosinophils 0.0 Absolute Basophils 0.1 Sodium 151.1 H Potassium 6.3 H* Chloride 119 H Carbon Dioxide 15 L Anion Gap 17 BUN 66 H Creatinine 4.17 H Est GFR ( Amer) 17 L Est GFR (Non-Af Amer) 14 L Glucose 137 H Calcium 10.4 H Urine Color Urine Appearance Urine pH Ur Specific [place] Urine Protein Urine Glucose (UA) Urine Ketones Urine Blood Urine Nitrite Ur Leukocyte Esterase Urine WBC (Auto) Stool Occult Blood NEGATIVE 07/23/16 07/23/16 06:10 06:20 WBC RBC Hgb Hct MCV MCH MCHC RDW Plt Count Seg Neutrophils % Lymphocytes % Monocytes % Eosinophils % Basophils % Absolute Neutrophils Absolute Lymphocytes Absolute Monocytes Absolute Eosinophils Absolute Basophils Sodium Potassium Chloride Carbon Dioxide Anion Gap BUN Creatinine Est GFR ( Amer) Est GFR (Non-Af Amer) Glucose Calcium Urine Color YELLOW Urine Appearance SLIGHTLY-CLOUDY Urine pH 5.0 Ur Specific [place] 1.013 Urine Protein 100 H Urine Glucose (UA) NEGATIVE Urine Ketones NEGATIVE Urine Blood NEGATIVE Urine Nitrite NEGATIVE Ur Leukocyte Esterase NEGATIVE Urine WBC (Auto) 1 Stool Occult Blood Cancelled 07/23/16 05:04 NT-Pro-B Natriuret Pep [id number] H Impressions: Lung Scan-VQ NM 07/22/16 13:14 IMPRESSION: Matching ventilation and perfusion defect in the right lower lobe. This is intermediate probability for acute pulmonary embolus according to PIOPED criteria. Patient has a known DVT in the left leg. Assessment & Plan - Diagnosis (1) Deep venous thrombosis of left femoral vein Qualifiers: Chronicity: acute Qualified Code(s): I82.412 - Acute embolism and thrombosis of left femoral vein Is this a current diagnosis for this admission?: YesPlan: Continues to Heparin drip (2) Chronic renal failure, stage 4 (severe) Is this a current diagnosis for this admission?: YesPlan: Worsening the kidney functions as per discussed with the Dr. Graff patient is not a candidate for any dialysis due to the multiple other comorbidity with the recent PE DVT and a non-ST DC (3) Hyperkalemia Is this a current diagnosis for this admission?: YesPlan: Given some Kayexalate and repeat this again after that 4 hours (4) Acute combined systolic and diastolic CHF, NYHA class 3 Is this a current diagnosis for this admission?: YesPlan: Start the patient on IV Lasix and consult the cardiology (5) Acute any-FL-npypupceq myocardial infarction Is this a current diagnosis for this admission?: YesPlan: Possible underlying cardiomyopathy will consult the cardiology as per the very extensive review the widened and the previous cardiology not patient is only a medical management (6) Anemia Qualifiers: Anemia type: other cause Other causes of anemia: chronic disease, kidney Qualified Code(s): N18.9 - Chronic kidney disease, unspecified; D63.1 - Anemia in chronic kidney disease Is this a current diagnosis for this admission?: YesPlan: We will continues to given Procrit injections patient's last Procrit injection was given the last Tuesday by Dr. Graff will get on iron study stool guaiac study (7) Cardiomyopathy Qualifiers: Cardiomyopathy type: unspecified Qualified Code(s): I42.9 - Cardiomyopathy, unspecified Is this a current diagnosis for this admission?: YesPlan: Continues to Lasix order the echocardiogram (8) Colonic mass Is this a current diagnosis for this admission?: YesPlan: Unclear etiology but unable to do any operative interventions due to the multiple comorbidity (9) Elevated troponin Is this a current diagnosis for this admission?: Yes (10) Hypertension Qualifiers: Hypertension type: essential hypertension Qualified Code(s): I10 - Essential (primary) hypertension Is this a current diagnosis for this admission?: Yes (11) Failure to thrive Qualifiers: Failure to thrive age range: in adult Qualified Code(s): R62.7 - Adult failure to thrive Is this a current diagnosis for this admission?: Yes - Time Time Spent with patient: 15-24 minutes Critical Time spent with patient: 15-24 minutes Medications reviewed and adjusted accordingly: Yes Anticipated discharge: Hospice, Other - Inpatient Certification Medical Necessity: Significant Comorbidiites Make Outpatient Treatment Too Risky , Need Close Monitoring Due to Risk of Patient Decompensation Post Hospital Care: D/C [employer] Operator Documentation - Plan Summary Plan Summary: Patient's very continues the current medications very extensive discussions with the patient's and the nephew about the patient's current conditions with end-stage disease and patient's currently a DO NOT RESUSCITATE and will try to make towers to Comfort Care. Will continues the current medication and to the Comfort Care and assistance make
[2016-07-23] MEDS ORDERED: CALCIUM GLUCONATE 1000 MG/10 ML INJ IV ONE (08:30)
[2016-07-23] MEDS: ISOSORBIDE MONONITRATE 30 MG TAB.ER.24H PO SCH (09:27)
[2016-07-23] MEDS: SODIUM BICARBONATE 650 MG TABLET PO SCH ×2 (09:27→21:42)
[2016-07-23] MEDS: FUROSEMIDE INJ/PF 20 MG/2 ML SDV IV SCH (09:28)
[2016-07-23] MEDS: FAMOTIDINE 20 MG TABLET PO SCH (09:28)
[2016-07-23] MEDS: CARVEDILOL 3.125 MG TABLET PO SCH ×2 (09:28→21:43)
[2016-07-23] MEDS ORDERED: CLOPIDOGREL BISULFATE 75 MG TABLET PO SCH ×2 (10:00)
[2016-07-23] MEDS ORDERED: CLOPIDOGREL BISULFATE 300 MG TABLET PO SCH (10:00)
[2016-07-23] MEDS ORDERED: FEBUXOSTAT 40 MG TABLET PO SCH (10:00)
[2016-07-23] MEDS ORDERED: LOSARTAN POTASSIUM 50 MG TABLET PO SCH (10:00)
[2016-07-23] MEDS ORDERED: FERROUS SULFATE 325 MG TABLET PO SCH (10:00)
[2016-07-23] MEDS ORDERED: MORPHINE SULFATE 10 MG/ML INJ IV PRN (14:22)
--- NOTE | 2016-07-23 14:39 | PROGRESS NOTE E ---
Progress Note NAME: NIKOS HAMMOND : 1935 AGE: 80Y DATE: 07/23/2016 ROOM: 319 This is an 80-year-old male admitted for multiple medical problems. The diagnoses are discussed extensively with the patient's next to the patient and the patient's nephew, Mr. Ortiz, regarding the patient's current conditions and discussed about endstage renal disease, coronary disease, pulmonary embolism, DVT, anemia. At this point, the patient is basically more comfort care and patient's whole family agrees about DNR/DNI and do not want to go for any further extensive evaluations and understand about things. Patient's does not want to take him back to the hospice at home, but if the patient remains longer will consider inpatient hospice. Consult funeral planner. The patient is put on comfort care and do not treat with any more aggressive medications at this point. More than 25 minutes spent in my office today discussing with the patient's family regarding the patient's current conditions. DICTATING PHYSICIAN: XUAN DAWN M.D. [id number] PHY#: [id number] ID: [id number] JOB#: [id number] ACCT: [id number] cc: >
--- NOTE | 2016-07-23 19:51 | PDOC PROGRESS REPORT ---
Subjective Progress Note for:: 07/23/16 Subjective:: Patient was noted to be confused. His potassium has gone up to 6.3. Renal functions has worsened. Patient was seen by [facility] nurse and was felt not a candidate for dialysis. Patient also seen by oncologist who has noted progressive deterioration in patient's general health. Patient also seen by medical MMari. Patient currently DO NOT RESUSCITATE and apparently now comfort care. Physical Exam Vital Signs: Temp Pulse Resp BP Pulse Ox 97.4 F 73 22 H 169/68 H 98 07/23/16 16:20 07/23/16 16:20 07/23/16 16:20 07/23/16 16:20 07/23/16 16:20 Intake & Output 07/22/16 07/23/16 07/24/16 06:59 06:59 06:59 Intake Total 531 180 Output Total 150 150 Balance 381 30 Weight 63.8 kg Exam: GENERAL: well-nourished and in no acute distress. Patient noted to be confused and somewhat lethargic HEAD: Atraumatic, normocephalic. EYES: Pupils equal round and reactive to light, extraocular movements intact, sclera anicteric, conjunctiva are normal. ENT: TMs normal, nares patent, oropharynx clear without exudates. Moist mucous membranes. No oral ulcerations or bleeding gums noted NECK: supple without lymphadenopathy. Trachea is central. No cervical or axillary lymphadenopathy noted. Carotids are 2+, JVD WNL LUNGS: Respiration seems nonlabored, no significant accessory muscle action noted. Breath sounds clear to auscultation bilaterally and equal noted. No wheezes rales or rhonchi noted. No significant dullness noted on percussion. CHEST: Palpation of the chest wall shows no significant chest wall tenderness. No other significant abnormalities noted. 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 ABDOMEN: Soft, no significant tenderness appreciated, normoactive bowel sounds. No guarding, no rebound. No rigidity noted . No masses appreciated. EXTREMITIES: Pedal pulses are 1-2+, no calf tenderness noted. No clubbing or cyanosis.2+ pedal edema. Some erythema noted both lower extremity. NEUROLOGICAL: Focused neurological exam showed patient to be confused but able to move all 4 extremities. He is noted. Very lethargic and weak. PSYCH: Normal mood, normal affect. Judgment and insight within normal limits. Patient understands that he is very sick. SKIN: No significant ecchymosis, rash, ulcerations or signs of pruritus noted. MUSCULOSKELETAL EXAM: No significant joint swelling noted. Results Laboratory Results: 07/23/16 05:04 07/23/16 05:04 07/23/16 07/23/16 07/23/16 05:04 05:04 06:10 WBC 7.1 RBC 3.96 L Hgb 11.6 L Hct 36.2 L MCV 92 MCH 29.3 MCHC 32.1 RDW 16.2 H Plt Count 468 H Seg Neutrophils % 83.6 H Lymphocytes % 6.9 L Monocytes % 8.5 Eosinophils % 0.2 Basophils % 0.8 Absolute Neutrophils 5.9 Absolute Lymphocytes 0.5 Absolute Monocytes 0.6 Absolute Eosinophils 0.0 Absolute Basophils 0.1 Sodium 151.1 H Potassium 6.3 H* Chloride 119 H Carbon Dioxide 15 L Anion Gap 17 BUN 66 H Creatinine 4.17 H Est GFR ( Amer) 17 L Est GFR (Non-Af Amer) 14 L Glucose 137 H Calcium 10.4 H Urine Color Urine Appearance Urine pH Ur Specific [place] Urine Protein Urine Glucose (UA) Urine Ketones Urine Blood Urine Nitrite Ur Leukocyte Esterase Urine WBC (Auto) Stool Occult Blood NEGATIVE 07/23/16 07/23/16 06:10 06:20 WBC RBC Hgb Hct MCV MCH MCHC RDW Plt Count Seg Neutrophils % Lymphocytes % Monocytes % Eosinophils % Basophils % Absolute Neutrophils Absolute Lymphocytes Absolute Monocytes Absolute Eosinophils Absolute Basophils Sodium Potassium Chloride Carbon Dioxide Anion Gap BUN Creatinine Est GFR ( Amer) Est GFR (Non-Af Amer) Glucose Calcium Urine Color YELLOW Urine Appearance SLIGHTLY-CLOUDY Urine pH 5.0 Ur Specific [place] 1.013 Urine Protein 100 H Urine Glucose (UA) NEGATIVE Urine Ketones NEGATIVE Urine Blood NEGATIVE Urine Nitrite NEGATIVE Ur Leukocyte Esterase NEGATIVE Urine WBC (Auto) 1 Stool Occult Blood Cancelled 07/23/16 05:04 NT-Pro-B Natriuret Pep [id number] H Impressions: Lung Scan-VQ NM 07/22/16 13:14 IMPRESSION: Matching ventilation and perfusion defect in the right lower lobe. This is intermediate probability for acute pulmonary embolus according to PIOPED criteria. Patient has a known DVT in the left leg. Chest X-Ray 07/23/16 00:00 IMPRESSION: Pulmonary vascular congestion with mild perihilar pulmonary edema left greater than right. Bibasilar atelectasis Assessment & Plan - Diagnosis (1) Acute zyg-TV-vptutjfcu myocardial infarction Is this a current diagnosis for this admission?: Yes (2) CHF (congestive heart failure) Qualifiers: Congestive heart failure type: combined Congestive heart failure chronicity: chronic Qualified Code(s): I50.42 - Chronic combined systolic (congestive) and diastolic (congestive) heart failure Is this a current diagnosis for this admission?: Yes (3) CAD (coronary artery disease) Qualifiers: Coronary Disease-Associated Artery/Lesion type: [place] artery [place] vs. transplanted heart: [place] heart Associated angina: without angina Qualified Code(s): I25.10 - Atherosclerotic heart disease of [place] coronary artery without angina pectoris Is this a current diagnosis for this admission?: Yes (4) Elevated troponin Is this a current diagnosis for this admission?: Yes (5) Chronic renal failure, stage 4 (severe) Is this a current diagnosis for this admission?: Yes (6) Deep venous thrombosis of left femoral vein Qualifiers: Chronicity: acute Qualified Code(s): I82.412 - Acute embolism and thrombosis of left femoral vein Is this a current diagnosis for this admission?: Yes (7) Failure to thrive Qualifiers: Failure to thrive age range: in adult Qualified Code(s): R62.7 - Adult failure to thrive Is this a current diagnosis for this admission?: Yes (8) Hyperkalemia Is this a current diagnosis for this admission?: Yes - Notes Notes: Patient has all above diagnosis but and decision has been made by the primary care physician to make him comfort care and not pursue any aggressive evaluation. At this point will sign off. Please reconsult if situation changes. - Time Time with patient: 15-25 minutes - CODE STATUS was discussed, patient remains full code. Surrogate decision-maker unchanged. Multiple medical problems were addressed.More than 50% of the time spent coordinating care, discussing management plans with involved caregivers. Management plans discussed with involved personnels. Discussed with nurse, physician involved.
[2016-07-23] MEDS ORDERED: ATORVASTATIN CALCIUM 40 MG TABLET PO SCH (22:00)
[2016-07-23] MEDS ORDERED: ATORVASTATIN CALCIUM 10 MG TABLET PO SCH (22:00)
[2016-07-24] MEDS ORDERED: NORMAL SALINE 1000 ML 1,000 ML IV SCH (10:00)
--- NOTE | 2016-07-24 11:02 | PDOC PROGRESS REPORT ---
Subjective Progress Note for:: 07/24/16 Subjective:: Pt now on comfort care measures, Dr. Mueller d/w family, agree w/ hospice care Physical Exam Vital Signs: Temp Pulse Resp BP Pulse Ox 97.5 F 71 16 151/68 H 95 07/24/16 07:46 07/24/16 09:30 07/24/16 09:30 07/24/16 07:46 07/24/16 09:30 Intake & Output 07/23/16 07/24/16 07/25/16 06:59 06:59 06:59 Intake Total 531 290 Output Total 150 150 Balance 381 140 Weight 63.8 kg 72.4 kg Results Laboratory Results: 07/23/16 05:04 07/23/16 05:04 07/23/16 05:04 NT-Pro-B Natriuret Pep [id number] H Impressions: Lung Scan-VQ NM 07/22/16 13:14 IMPRESSION: Matching ventilation and perfusion defect in the right lower lobe. This is intermediate probability for acute pulmonary embolus according to PIOPED criteria. Patient has a known DVT in the left leg. Chest X-Ray 07/23/16 00:00 IMPRESSION: Pulmonary vascular congestion with mild perihilar pulmonary edema left greater than right. Bibasilar atelectasis Assessment & Plan - Diagnosis (1) Deep venous thrombosis of left femoral vein Qualifiers: Chronicity: acute Qualified Code(s): I82.412 - Acute embolism and thrombosis of left femoral vein Is this a current diagnosis for this admission?: YesPlan: No further anticoagulation, plan for comfort care, will sign off (2) Anemia Qualifiers: Anemia type: other cause Other causes of anemia: chronic disease, kidney Qualified Code(s): N18.9 - Chronic kidney disease, unspecified; D63.1 - Anemia in chronic kidney disease Is this a current diagnosis for this admission?: YesPlan: no further rx planned - Time Time Spent with patient: 15-24 minutes Critical Time spent with patient: 15-24 minutes
[2016-07-24] MEDS: SODIUM BICARBONATE 650 MG TABLET PO SCH ×2 (12:45→22:37)
[2016-07-24] MEDS: CARVEDILOL 3.125 MG TABLET PO SCH ×2 (12:45→22:38)
[2016-07-24] MEDS: ISOSORBIDE MONONITRATE 30 MG TAB.ER.24H PO SCH (12:45)
--- NOTE | 2016-07-24 16:06 | EKG REPORT ---
SEVERITY:- ABNORMAL ECG - SINUS RHYTHM NONSPECIFIC IVCD WITH LAD LVH WITH SECONDARY REPOLARIZATION ABNORMALITY CONSIDER ANTERIOR INFARCT : Confirmed by: Payton Malhotra MD 24-Jul-2016 16:05:48
--- NOTE | 2016-07-24 18:09 | PDOC PROGRESS REPORT ---
Subjective Progress Note for:: 07/24/16 Subjective:: Patient was seen by the bedside, essentially comfort care measures, Physical Exam Vital Signs: Temp Pulse Resp BP Pulse Ox 97.6 F 70 18 128/61 H 100 07/24/16 16:13 07/24/16 16:13 07/24/16 16:13 07/24/16 16:13 07/24/16 16:13 Intake & Output 07/23/16 07/24/16 07/25/16 06:59 06:59 06:59 Intake Total 531 290 10 Output Total 150 150 Balance 381 140 10 Weight 63.8 kg 72.4 kg Results Laboratory Results: 07/23/16 05:04 07/23/16 05:04 07/23/16 05:04 NT-Pro-B Natriuret Pep [id number] H Impressions: Lung Scan-VQ NM 07/22/16 13:14 IMPRESSION: Matching ventilation and perfusion defect in the right lower lobe. This is intermediate probability for acute pulmonary embolus according to PIOPED criteria. Patient has a known DVT in the left leg. Chest X-Ray 07/23/16 00:00 IMPRESSION: Pulmonary vascular congestion with mild perihilar pulmonary edema left greater than right. Bibasilar atelectasis Assessment & Plan - Diagnosis (1) CHF (congestive heart failure) Qualifiers: Congestive heart failure type: combined Congestive heart failure chronicity: chronic Qualified Code(s): I50.42 - Chronic combined systolic (congestive) and diastolic (congestive) heart failure Is this a current diagnosis for this admission?: Yes (2) Chronic renal failure, stage 4 (severe) Is this a current diagnosis for this admission?: Yes (3) Deep venous thrombosis of left femoral vein Qualifiers: Chronicity: acute Qualified Code(s): I82.412 - Acute embolism and thrombosis of left femoral vein Is this a current diagnosis for this admission?: Yes (4) Failure to thrive Qualifiers: Failure to thrive age range: in adult Qualified Code(s): R62.7 - Adult failure to thrive Is this a current diagnosis for this admission?: Yes (5) Hyperkalemia Is this a current diagnosis for this admission?: Yes (6) Acute ztp-FK-nvfqydiez myocardial infarction Is this a current diagnosis for this admission?: YesPlan: Patient is comfort care measures continue present plan of care.
[2016-07-25] MEDS: SODIUM BICARBONATE 650 MG TABLET PO SCH ×2 (11:04→21:46)
[2016-07-25] MEDS: ISOSORBIDE MONONITRATE 30 MG TAB.ER.24H PO SCH (11:04)
[2016-07-25] MEDS: CARVEDILOL 3.125 MG TABLET PO SCH ×2 (11:04→21:46)
--- NOTE | 2016-07-25 17:52 | PDOC PROGRESS REPORT ---
Subjective Progress Note for:: 07/25/16 Subjective:: Patient is comfort care measures Physical Exam Vital Signs: Temp Pulse Resp BP Pulse Ox 97.8 F 62 16 139/64 H 100 07/25/16 07:30 07/25/16 14:00 07/25/16 07:30 07/25/16 07:30 07/25/16 07:30 Intake & Output 07/24/16 07/25/16 07/26/16 06:59 06:59 06:59 Intake Total 290 628 20 Output Total 150 400 Balance 140 228 20 Weight 72.4 kg 73.7 kg Results Laboratory Results: 07/23/16 05:04 07/23/16 05:04 07/23/16 05:04 NT-Pro-B Natriuret Pep [id number] H Impressions: Lung Scan-VQ NM 07/22/16 13:14 IMPRESSION: Matching ventilation and perfusion defect in the right lower lobe. This is intermediate probability for acute pulmonary embolus according to PIOPED criteria. Patient has a known DVT in the left leg. Chest X-Ray 07/23/16 00:00 IMPRESSION: Pulmonary vascular congestion with mild perihilar pulmonary edema left greater than right. Bibasilar atelectasis Assessment & Plan - Diagnosis (1) CHF (congestive heart failure) Qualifiers: Congestive heart failure type: combined Congestive heart failure chronicity: chronic Qualified Code(s): I50.42 - Chronic combined systolic (congestive) and diastolic (congestive) heart failure Is this a current diagnosis for this admission?: Yes (2) Chronic renal failure, stage 4 (severe) Is this a current diagnosis for this admission?: Yes (3) Deep venous thrombosis of left femoral vein Qualifiers: Chronicity: acute Qualified Code(s): I82.412 - Acute embolism and thrombosis of left femoral vein Is this a current diagnosis for this admission?: Yes (4) Failure to thrive Qualifiers: Failure to thrive age range: in adult Qualified Code(s): R62.7 - Adult failure to thrive Is this a current diagnosis for this admission?: Yes (5) Hyperkalemia Is this a current diagnosis for this admission?: Yes (6) Acute hav-IX-qvbsghwac myocardial infarction Is this a current diagnosis for this admission?: Yes
[2016-07-26] MEDS: CARVEDILOL 3.125 MG TABLET PO SCH ×2 (09:43→13:04)
[2016-07-26] MEDS: ISOSORBIDE MONONITRATE 30 MG TAB.ER.24H PO SCH ×2 (09:43→13:04)
[2016-07-26] MEDS: SODIUM BICARBONATE 650 MG TABLET PO SCH ×2 (09:43→13:04)
[2016-07-27] MEDS: CARVEDILOL 3.125 MG TABLET PO SCH ×2 (09:22→22:19)
[2016-07-27] MEDS: SODIUM BICARBONATE 650 MG TABLET PO SCH ×2 (09:22→22:19)
--- NOTE | 2016-07-27 16:13 | PDOC TRANSFER SUMMARY ---
General - Admit/Disc Date/PCP Admission Date/Primary Care Provider: 07/22/16 15:12 XUAN DAWN MD Discharge Date: 07/26/16 - Discharge Diagnosis (1) Deep venous thrombosis of left femoral vein Is this a current diagnosis for this admission?: YesSummary: AnticoagulationsPatient currently is a note candidate for an currently on comfort care (2) Chronic renal failure, stage 4 (severe) Is this a current diagnosis for this admission?: YesSummary: Not candidate for any dialysis (3) Hyperkalemia Is this a current diagnosis for this admission?: Yes (4) Acute combined systolic and diastolic CHF, NYHA class 3 Is this a current diagnosis for this admission?: YesSummary: Continues curr [facility] (5) Acute [id number] myocardial infarction Is this a current diagnosis for this admission?: YesSummary: Stabletable (6) Anemia Is this a current diagnosis for this admission?: YesSummary: stable (7) Cardiomyopathy Is this a current diagnosis for this admission?: YesSummary: Patient EF is very low any significant coronary disease which is non-operable (8) Colonic mass Is this a current diagnosis for this admission?: YesSummary: Not a candidate for any surgical interventions (9) Elevated troponin Is this a current diagnosis for this admission?: YesSummary: Non-ST CA (10) Hypertension Is this a current diagnosis for this admission?: Yes (11) Failure to thrive Is this a current diagnosis for this admission?: YesSummary: Due to the multiple end-stage conditions - Additional Information Resuscitation Status: Full Code Home Medications: Atorvastatin Calcium [Lipitor 10 mg Tablet] 10 mg PO QHS 07/22/16 Carvedilol [Coreg 3.125 mg Tablet] 3.125 mg PO Q12 07/22/16 Clopidogrel Bisulfate [Clopidogrel] 75 mg PO DAILY 07/22/16 Clopidogrel Bisulfate [Plavix 75 mg Tablet] 75 mg PO DAILY #30 tablet 07/22/16 Famotidine [Pepcid 20 mg Tablet] 20 mg PO BID 07/22/16 Febuxostat [Uloric 40 mg Tablet] 40 mg PO DAILY 07/22/16 Ferrous Sulfate [Feosol 325 mg Tablet] 325 mg PO BID 07/22/16 Furosemide [Lasix] 20 mg PO DAILY 07/22/16 Isosorbide Mononitrate [Isosorbide Mononitrate ER] 30 mg PO DAILY 07/22/16 Losartan Potassium [Cozaar 50 mg Tablet] 50 mg PO Q12 07/22/16 History of Present Illness Admission Date/PCP: 07/22/16 15:12 XUAN DAWN MD History of Present Illness: NIKOS HAMMOND is a 80 year old This is a 80-year-old male with a significant disease with a coronary artery and only medical management as per [facility] cardiology and also patient's follow the local cardiology and the significant history of anemia and chronic kidney disease stage IV patients came to the my office today with a complaint before increasing the leg swelling and shortness of the breath for the last several days. In the office patient was not in any acute distress and O2 sat is normal but the patient ever definitely is swelling in the leg and the concern about the DVT versus CHF. Patient have a history of the DVT in the left extremity in the past and the patient was on the Coumadin but after several months of Coumadin will stop because of severe anemia. Patient sent to the hospital for the ultrasound and the report was positive for acute DVT in the left upper extremity and patient was sent to the emergency departmentAnd the patient underwent for the VQ scan Sows indeterminant and patient's potassium was high and patient's troponin was also elevated. Patients denied any chest pain denied any shortness of breath but it is now patient was started on a heparin drip in the ER and the patient have a multiple other risk factors and comorbidity with only medical management for his coronary disease and patient is not a very good candidate for dialysis because of the multiple comorbidity. Discussed with the family including the and the nephew and the patient's and understand about all the complexity of the disease and the patient at this point admitting in the hospital for further treatments. 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 On repeated questioning in the emergency room, he denied any chest pain, he denied any shortness of breath but kept pointing to his lower extremity. Patient was noted to be confused and could not remember the date. 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 Patient was also seen by the nephrology cardiology and hematology and suggest that patient' s Sonata candidate for any interventions and a very extensive discussions with the physicians and the family all options and patient was put on hospice care and comfort care. And patient at this point supposed to go to the inpatient hospice and discharge mother was consulted Physical Exam Vital Signs: Temp Pulse Resp BP Pulse Ox 97.9 F 69 16 137/67 H 100 07/25/16 19:40 07/26/16 02:00 07/25/16 19:40 07/25/16 19:40 07/25/16 19:40 Intake & Output 07/25/16 07/26/16 07/27/16 06:59 06:59 06:59 Intake Total 628 230 Output Total 400 375 Balance 228 -145 Weight 73.7 kg 72.9 kg General appearance: PRESENT: no acute distress Eye exam: PRESENT: PERRLA Neck exam: PRESENT: JVD Respiratory exam: PRESENT: decreased breath sounds Cardiovascular exam: PRESENT: +S1, +S2 Extremities exam: PRESENT: +1 edema Neurological exam: PRESENT: alert, altered Results Laboratory Results: 07/23/16 05:04 07/23/16 05:04 07/23/16 05:04 NT-Pro-B Natriuret Pep [id number] H Impressions: Lung Scan-VQ NM 07/22/16 13:14 IMPRESSION: Matching ventilation and perfusion defect in the right lower lobe. This is intermediate probability for acute pulmonary embolus according to PIOPED criteria. Patient has a known DVT in the left leg. Chest X-Ray 07/23/16 00:00 IMPRESSION: Pulmonary vascular congestion with mild perihilar pulmonary edema left greater than right. Bibasilar atelectasis Transfer Plan - Disposition Transfer Plan: Marciano the patient's comfort care and hospice and use only her morphine and when necessary oxygen and make the patient's more comfortable Plan Time Spent: Greater than 30 Minutes - Vascular the patient's to hospice and comfort care
--- NOTE | 2016-07-28 08:15 | PDOC PROGRESS REPORT ---
Subjective Progress Note for:: 07/28/16 Subjective:: Patient is currently doing same and confused patient is waiting for the bed to go to the half-way for the [facility] and patient's other than that no other events happens Physical Exam Vital Signs: Temp Pulse Resp BP Pulse Ox 97.3 F 75 18 153/72 H 100 07/28/16 07:08 07/28/16 07:08 07/28/16 02:58 07/28/16 07:08 07/28/16 07:08 Intake & Output 07/27/16 07/28/16 07/29/16 06:59 06:59 06:59 Intake Total 415 559 Output Total 475 425 Balance -60 134 Weight 71.2 kg 70.3 kg General appearance: PRESENT: no acute distress Eye exam: PRESENT: PERRLA Mouth exam: PRESENT: neck supple Respiratory exam: PRESENT: clear to auscultation kristen Cardiovascular exam: PRESENT: +S1, +S2 GI/Abdominal exam: PRESENT: normal bowel sounds, soft Neurological exam: PRESENT: alert, altered, awake Skin exam: PRESENT: dry Results Laboratory Results: 07/23/16 05:04 07/23/16 05:04 07/23/16 05:04 NT-Pro-B Natriuret Pep [id number] H Impressions: Lung Scan-VQ NM 07/22/16 13:14 IMPRESSION: Matching ventilation and perfusion defect in the right lower lobe. This is intermediate probability for acute pulmonary embolus according to PIOPED criteria. Patient has a known DVT in the left leg. Chest X-Ray 07/23/16 00:00 IMPRESSION: Pulmonary vascular congestion with mild perihilar pulmonary edema left greater than right. Bibasilar atelectasis Assessment & Plan - Diagnosis (1) Deep venous thrombosis of left femoral vein Qualifiers: Chronicity: acute Qualified Code(s): I82.412 - Acute embolism and thrombosis of left femoral vein Is this a current diagnosis for this admission?: YesPlan: Continues to Heparin drip (2) Chronic renal failure, stage 4 (severe) Is this a current diagnosis for this admission?: YesPlan: Worsening the kidney functions as per discussed with the Dr. Graff patient is not a candidate for any dialysis due to the multiple other comorbidity with the recent PE DVT and a non-ST NC (3) Hyperkalemia Is this a current diagnosis for this admission?: YesPlan: Given some Kayexalate and repeat this again after that 4 hours (4) Acute combined systolic and diastolic CHF, NYHA class 3 Is this a current diagnosis for this admission?: YesPlan: Start the patient on IV Lasix and consult the cardiology (5) Acute xus-[id number] myocardial infarction Is this a current diagnosis for this admission?: YesPlan: Possible underlying cardiomyopathy will consult the cardiology as per the very extensive review the widened and the previous cardiology not patient is only a medical management (6) Anemia Qualifiers: Anemia type: other cause Other causes of anemia: chronic disease, kidney Qualified Code(s): N18.9 - Chronic kidney disease, unspecified; D63.1 - Anemia in chronic kidney disease Is this a current diagnosis for this admission?: YesPlan: We will continues to given Procrit injections patient's last Procrit injection was given the last Tuesday by Dr. Graff will get on iron study stool guaiac study (7) Cardiomyopathy Qualifiers: Cardiomyopathy type: unspecified Qualified Code(s): I42.9 - Cardiomyopathy, unspecified Is this a current diagnosis for this admission?: YesPlan: Continues to Lasix order the echocardiogram (8) Colonic mass Is this a current diagnosis for this admission?: YesPlan: Unclear etiology but unable to do any operative interventions due to the multiple comorbidity (9) Elevated troponin Is this a current diagnosis for this admission?: YesPlan: Most likely a from the non-ST NC versus cardiomyopathy and chronic kidney disease will follow with the cardiology (10) Hypertension Qualifiers: Hypertension type: essential hypertension Qualified Code(s): I10 - Essential (primary) hypertension Is this a current diagnosis for this admission?: YesPlan: Continues the current medications (11) Failure to thrive Qualifiers: Failure to thrive age range: in adult Qualified Code(s): R62.7 - Adult failure to thrive Is this a current diagnosis for this admission?: Yes - Time Time Spent with patient: 15-24 minutes Critical Time spent with patient: 15-24 minutes Medications reviewed and adjusted accordingly: Yes Anticipated discharge: SNF, Hospice Within: Other - Plan Summary Plan Summary: Just continues to [facility] and waiting to transfer the patient's to the rehabilitation units with the [facility] when the bed available discussed with the family
[2016-07-28] MEDS: CARVEDILOL 3.125 MG TABLET PO SCH (10:00)
[2016-07-28] MEDS: ISOSORBIDE MONONITRATE 30 MG TAB.ER.24H PO SCH (10:00)
[2016-07-28] MEDS: SODIUM BICARBONATE 650 MG TABLET PO SCH (10:00)
[2016-07-28 12:09] VITALS: BP 146/65
== END 2016-07-28 17:21 | disposition hospice, inpatient (51) | DRG 280 ==
LOC: ER 12:25 → EH 15:12 → UNDOADMIN 15:39 → 3W 19:12
PROVIDERS: ADMIT Family Medicine; ATTEND Family Medicine
PROC: 3E0F73Z Introduction of Anti-inflammatory into Respiratory Tract, Via Natural or Artificial Opening (ICD-10-PCS; principal; 2016-07-22)
DX: I21.4 Non-ST elevation (NSTEMI) myocardial infarction (principal); I50.43 Acute on chronic combined systolic (congestive) and diastolic (congestive) heart failure; I26.99 Other pulmonary embolism without acute cor pulmonale; I82.412 Acute embolism and thrombosis of left femoral vein; N17.9 Acute kidney failure, unspecified; I13.0 Hypertensive heart and chronic kidney disease with heart failure and stage 1 through stage 4 chronic kidney disease, or unspecified chronic kidney disease; N18.4 Chronic kidney disease, stage 4 (severe); I42.9 Cardiomyopathy, unspecified; R62.51 Failure to thrive (child); I25.10 Atherosclerotic heart disease of native coronary artery without angina pectoris; E87.5 Hyperkalemia; N40.0 Benign prostatic hyperplasia without lower urinary tract symptoms; Z66 Do not resuscitate; D63.1 Anemia in chronic kidney disease; I25.2 Old myocardial infarction; E78.5 Hyperlipidemia, unspecified; J44.9 Chronic obstructive pulmonary disease, unspecified; K63.89 Other specified diseases of intestine; K31.89 Other diseases of stomach and duodenum; K21.9 Gastro-esophageal reflux disease without esophagitis; M19.90 Unspecified osteoarthritis, unspecified site; F32.9 Major depressive disorder, single episode, unspecified; Z95.810 Presence of automatic (implantable) cardiac defibrillator; Z79.899 Other long term (current) drug therapy; Z86.718 Personal history of other venous thrombosis and embolism; Z51.5 Encounter for palliative care
CPT/HCPCS: 36415; 71010; 78582; 80048; 80053; 81001; 82272; 82550; 82553; 83880; 84484; 85025; 85610; 85730; 93005; 93010; 93970; 99291; A9540; A9567; J0610; J1644; J1940; J2270; J3490; J7030; J7620; Q9969

== ENCOUNTER → 2016-07-22 | Outpatient (CLI) | payer MEDICARE, OTHER | LOC: SP 11:15 | PROVIDERS: ATTEND Family Medicine | DX: R60.9 Edema, unspecified (principal); I50.9 Heart failure, unspecified; D64.9 Anemia, unspecified; N18.9 Chronic kidney disease, unspecified | CPT/HCPCS: 93970 ==